=== PATIENT | male | born 1955 | race Caucasian/White ===

== ENCOUNTER → 2023-03-14 | Outpatient (CLI) | payer MEDICARE ==
[2023-03-14 09:41] LABS: African American GFR (CKD) >90 (>60 ml/min/1.73 sqM); Blood Urea Nitrogen 11 mg/dL (9-20); Non-African American GFR(CKD) >90 (>60 ml/min/1.73 sqM)
--- NOTE | 2023-03-14 10:27 | CT ---
EXAMINATION TYPE: CT soft tissue neck w con DATE OF EXAM: 03/14/2023 COMPARISON: None HISTORY: left side neck lump CT DLP: 850.1 mGycm CONTRAST: Patient injected with 100 mL of Isovue 300. TECHNIQUE: Axial images at 3 mm thick sections. Reconstructed images in the coronal plane and sagitt al plane are reviewed. FINDINGS: Limited CT sections are obtained the lung apices. The lung apices appear clear. CT neck: The torus tubarius and fossa of Rosenmuller are normal. Spout Tender spaces are normal. Para nasal sinuses and mastoid air cells are clear. Parotid glands appear normal and symmetrical. Submandibular glands, are normal. Parapharyngeal spac es are normal. There is a 1.1 cm lymph node adjacent to the descending thoracic aortic arch and the superior mediastinum. Some additional shotty lymphadenopathy in the aortopulmonic window. There is an enlarged node in the aortopulmonic window measuring 1.0 cm. There is a prominent posterior triangle lymph node measuring 1.1 cm. There is additional lymphadenopathy is on the left. A BB is on the level of the parotid gland which has very prominent confluent adenopathy deep to the musculature. This brittany sures up to 2.3 cm in size and is asymmetric with the contralateral side. There is a 1.4 cm lymph nod e in the left supraclavicular region. There is a three-vessel arch. The hypopharynx appears within normal limits. Vocal cord level appear symmetrical. Thyroid as visualized is normal. Osseous structures are normal. IMPRESSIONS: 1. Enlarged left side lymphadenopathy corresponds to the palpable region on the left. There are some enlarged supraclavicular adenopathy and enlarged mediastinal adenopathy. Additional workup for lympho ma or metastatic disease is recommended. A Yellow level critical message alert has been initiated for Chandana Strickland DO via the [employer] Critical Results System on 03/14/2023 10:24 AM. This message alert has been sent to Chandana Strickland DO vi a the preferences provided by the clinician for the receipt of Radiology Critical Findings. Message I D [id number].
== END | disposition home or self-care (01) ==
LOC: RADCTMAIN 08:55
PROVIDERS: ATTEND Family Medicine
DX: R22.1 Localized swelling, mass and lump, neck (principal)
CPT/HCPCS: 82565; 84520; 70491; 36415; Q9967

== ENCOUNTER 2023-04-08 13:01 | Day surgery (SDC) | payer MEDICARE ==
[2023-04-08 13:32] VITALS: RESP 16; TEMP 98.1
[2023-04-08 14:15] VITALS: BP 141/83; PULSE 88
--- NOTE | 2023-04-08 14:41 | US ---
ULTRASOUND GUIDED CORE BIOPSY LEFT NECK MASS: CLINICAL HISTORY: Left neck mass FINDINGS: The procedure was explained to the patient. The risks, complications, benefits and alternatives were discussed and any questions were answered. Informed consent was obtained. Patient was placed supin e on the ultrasound table and prepped and draped in the usual sterile fashion. Utilizing a 18 gauge needle, three passes were made into the neck mass. Patient was stable throughout the procedure. Pathology is pending. All elements of maximal barrier and sterile technique were utilized. IMPRESSION: 1. Successful ultrasound guided core biopsy left neck mass.
== END 2023-04-08 14:19 | disposition home or self-care (01) ==
LOC: RADPROMAIN 13:01
PROVIDERS: ATTEND Internal Medicine
DX: C85.11 Unspecified B-cell lymphoma, lymph nodes of head, face, and neck (principal)
CPT/HCPCS: 20206; 21550; 76942; 88305; 88341; 88342

== ENCOUNTER → 2024-05-07 | Outpatient (CLI) | payer MEDICARE ==
--- NOTE | 2024-05-16 15:13 | PE ---
EXAMINATION TYPE: PET CT fusion skull to thigh DATE OF EXAM: 05/07/2024 COMPARISON: 03/14/[address] Prior PET/CT: None at this location HISTORY: Lymphoma TECHNIQUE: Following the intravenous administration of 12.2 mCi of F-18 FDG, whole body images are p erformed from the skull base to the midthigh. Images are reviewed on the computer in the coronal, ax ial, and sagittal planes. Reconstructed rotating images are created on independent workstation and r eviewed on the computer. A localization and attenuation correction CT is performed in conjunction w ith the PET scan. DLP: 945.88 plus 519.54 mGycm SCAN: Subsequent Blood glucose: 114 mg/dL Average Mediastinum SUV: 2.7 Average Liver SUV: 3.32 FINDINGS: NECK: No abnormal uptake THORAX: No abnormal uptake ABDOMEN: No abnormal uptake PELVIS: No abnormal uptake OSSEOUS STRUCTURES: May be some inflammatory change at the left facet at C3-4 is mild increased radio tracer measuring SUV 4.[address]: No suspicious adenopathy identified. Coronary artery calcification is present. Some diverticulosis without acute diverticulitis is present. COMPARISON: Previous left neck adenopathy has resolved. IMPRESSION: 1. No suspicious uptake within lymphadenopathy to suggest recurrent or residual lymphoma. No metastat ic disease identified.
== END | disposition home or self-care (01) ==
LOC: RADPETMAIN 11:00
PROVIDERS: ATTEND Internal Medicine
DX: C82.98 Follicular lymphoma, unspecified, lymph nodes of multiple sites (principal)
CPT/HCPCS: 78815; A9552

== ENCOUNTER → 2025-03-11 | Outpatient (CLI) | payer MEDICARE ==
--- NOTE | 2025-03-11 13:27 | USB ---
Reason for Exam: Clinical finding. Technique: Method: Targeted. Findings: The upper outer quadrant of the right breast, the axilla of the right breast and the retroareolar of the right breast were scanned. A US of upper outer quadrant of the right breast and axilla, retro-areolar region were reviewed. No solid or cystic masses are identified.. There is some heterogeneous echogenicity of the right subcutaneous fat at the 10:00 position. This is of uncertain etiology correlate for inflammatory change. I consider follow-up CT scan. Overall Assessment: Probably benign, BI-RAD 3 Management: Diagnostic Breast Ultrasound of the right breast in 3 months. A clinical breast exam by your physician is recommended on an annual basis and results should be correlated with mammographic findings. This exam should not preclude additional follow-up of suspicious palpable abnormalities. Results were given to the patient verbally at the time of exam. [facility], , 03/11/2025 1:24 PM. Electronically signed and approved by: Gagandeep Dash M.D. Radiologis
== END | disposition home or self-care (01) ==
LOC: RADUSWWP 13:02
PROVIDERS: ATTEND Internal Medicine
DX: C82.98 Follicular lymphoma, unspecified, lymph nodes of multiple sites (principal); C00.4 Malignant neoplasm of lower lip, inner aspect; F32.5 Major depressive disorder, single episode, in full remission; Z71.3 Dietary counseling and surveillance

== ENCOUNTER → 2025-04-14 | Outpatient (CLI) | payer MEDICARE ==
[2025-04-14 15:40] VITALS: BP 148/84; PULSE 83; RESP 16; TEMP 97.9
--- NOTE | 2025-04-14 16:03 | P.SLEEP ---
History of Present Illness DATE: 04/14/2025 CONSULTATION/NEW PATIENT EVALUATION HISTORY OF PRESENT ILLNESS/SLEEP-WAKE EVALUATION: 69-year-old gentleman had b een evaluated in the sleep center for possible obstructive sleep apnea hypopnea syndrome. SLEEP SCHEDULE: Usually sleep schedule from 10 PM to 7 AM. FALLING ASLEEP: Sometimes patient has difficulties with falling asleep, has TV set in bedroom. DURING SLEEP: Patient sleeps in different position with snoring, grinding teeth, awakenings from sleep 4 times with nocturia. No history of hypnogogical hallucinations, sleep paralysis, or cataplexy. DURING THE DAY/WAKE STATE: During the day patient may feel occasional sleepiness. [place] sleepiness scale is 7. Sometimes patient take naps at 2 PM. PAST MEDICAL HISTORY: Atrial fibrillation, hypertension, hyperlipidemia, gout, diabetes mellitus. PAST SURGICAL HISTORY: Prostatectomy for cancer. MEDICATIONS: Please see below. SOCIAL HISTORY: Please see below. FAMILY HISTORY: Please see below. REVIEW OF SYSTEMS: Snoring, multiple awakenings from sleep. No fevers. No double vision. No recent chest pain. No shortness of breath. No abdominal pain. No bleeding episodes. No blood in urine. No seizure episodes. PHYSICAL EXAMINATION: GENERAL: A pleasant patient without any distress. VITAL SIGNS: Please see below, weight 279 pounds, BMI 35.8. HEENT: PERRLA, EOMI. Evaluation of oropharynx showed tongue protrudes midline, low position of soft palate Mallampati 23, short distance between soft palate and posterior pharyngeal wall. NECK: Supple. No JVD. Thyroid is not palpable. 19 inches in circumference. LUNGS: Clear to percussion and to auscultation. Good air exchange. No wheezing or rhonchi. HEART: S1, S2 regular. No murmurs, gallops or rubs. ABDOMEN: Soft and nontender. Bowel sounds are present. No organomegaly appreciated. EXTREMITIES: No clubbing or cyanosis. SURVEY PARTY CHIEF: Awake, alert, and oriented x3. Cranial nerves 2 to 7 intact. There is no fasciculation or atrophy noted. No focal deficits observed. ASSESSMENT: 1. Snoring, multiple awakenings from sleep, short distance between soft palate and posterior pharyngeal wall, wide neck 19 inches in circumference. Obstructive sleep apnea hypopnea syndrome. 2. History of atrial fibrillation. 3. Hypertension. 4. Hyperlipidemia. 5. Diabetes mellitus. 6 . Gout. 7. Status post prostatectomy for cancer. 8. Obesity, BMI 35.8. PLAN: 1. Polysomnography for evaluation of patient's breathing during sleep. 2. Following plan after reading sleep study. 3. Preferable position during sleep on the side. 4. No driving if patient feels any sleepiness. Patient is aware of civil and criminal liability for unsafe driving. 5. Sleep hygiene with regular sleep time for at least 7.5-8 hours. 6. Watching and losing weight. Thank you very much for referring this patient for consultation. Sincerely, Corey Melchor MD, PhD, FAASM. Diplomat of [employer], Sleep Medicine Board by [employer] [employer] [facility] [place] cc: Chandana Strickland DO, Skaf, Elias MD Past Medical History Past Medical History: Atrial Fibrillation, Cancer, Diabetes Mellitus, Hyperlipidemia, Hypertension, Prostate Disorder Additional Past Medical History / Comment(s): prostate cancer History of Any Multi-Drug Resistant Organisms: None Reported Additional Past Surgical History / Comment(s): prostate sugery for CA. Cyst removed left cheek. Past Anesthesia/Blood Transfusion Reactions: No Reported Reaction Past Psychological History: No Psychological Hx Reported Smoking Status: Former smoker Past Alcohol Use History: Daily Additional Past Alcohol Use History / Comment(s): 6 pack daily; quit a year ago Past Drug Use History: None Reported - Past Family History Father Family Medical History: No Reported History Medications and Allergies Home Medications Medication Instructions Recorded Confirmed Type Atorvastatin [Lipitor] 20 mg PO DAILY 04/04/23 04/14/25 History Metoprolol Tartrate [Lopressor] 50 mg PO BID 04/04/23 04/14/25 History Apixaban [Eliquis] 5 mg PO DAILY 04/14/25 04/14/25 History Furosemide [Lasix] 20 mg PO DAILY 04/14/25 04/14/25 History Indomethacin [Indocin ER] 75 mg PO 04/14/25 04/14/25 History Semaglutide [Ozempic] 1 mg SQ 04/14/25 History allopurinoL 100 mg PO DAILY 04/14/25 04/14/25 History metFORMIN HCL [Glucophage] 500 mg PO DAILY 04/14/25 04/14/25 History Allergies Allergy/AdvReac Type Severity Reaction Status Date / Time No Known Allergies Allergy Verified 04/08/23 13:23 Physical Exam Vitals: Vital Signs Temp Pulse Resp BP Pulse Ox 04/14/25 15:39 97.9 F 83 16 148/84 91 L Intake and Output 04/14/25 04/14/25 04/14/25 06:59 14:59 22:59 Other: Weight 126.552 kg Sleep Note - Sleep Data ESS Total: 7 - Sleep Note Sleep Note: Temperature: 97.9 F Pulse Rate: 83 Respiratory Rate: 16 Blood Pressure: 148/84 SpO2: 91 Height: 6 ft 2 in Weight: 126.552 kg BMI: Neck Circumference: 19
== END ==
LOC: 3 N SLEEP 15:13
PROVIDERS: ATTEND Internal Medicine
DX: G47.33 Obstructive sleep apnea (adult) (pediatric) (principal); I48.91 Unspecified atrial fibrillation; I10 Essential (primary) hypertension; E78.5 Hyperlipidemia, unspecified; E11.9 Type 2 diabetes mellitus without complications; M10.9 Gout, unspecified; E66.9 Obesity, unspecified; Z68.35 Body mass index [BMI] 35.0-35.9, adult; Z98.890 Other specified postprocedural states
CPT/HCPCS: 99211

== ENCOUNTER → 2025-06-13 | Outpatient (CLI) | payer MEDICARE ==
--- NOTE | 2025-06-14 08:20 | USB ---
Reason for Exam: Follow-up at short interval from prior study. Technique: Method: Targeted. Findings: The upper outer quadrant of the right breast, the axilla of the right breast and the retroareolar of the right breast were scanned. Technique utilized:US breast limited RT Image; Ultrasound imaging of: Area of concern, retroareolar region and axilla. No evidence for organizing fluid collection or mass. Overall Assessment: Negative, BI-RAD 1 Management: No follow up is required for this exam. A clinical breast exam by your physician is recommended on an annual basis and results should be correlated with mammographic findings. This exam should not preclude additional follow-up of suspicious palpable abnormalities. Results were given to the patient verbally at the time of exam. [facility], , 06/14/2025 8:17 AM. Electronically signed and approved by: Kodak Cartwright DO
== END | disposition home or self-care (01) ==
LOC: RADUSWWP 14:59
PROVIDERS: ATTEND Internal Medicine
DX: C82.98 Follicular lymphoma, unspecified, lymph nodes of multiple sites (principal); C00.4 Malignant neoplasm of lower lip, inner aspect; F32.5 Major depressive disorder, single episode, in full remission; Z71.3 Dietary counseling and surveillance

== ENCOUNTER 2025-06-14 19:38 | Outpatient (CLI) | payer MEDICARE ==
--- NOTE | 2025-06-16 16:05 | P.PCN ---
Description of Procedure: POLYSOMNOGRAPHY REPORT PROCEDURE(S)/DATE(S): Polysomnography 06/14/2025 CLINICAL: Patient has been seen in the sleep center for evaluation of obstructive sleep apnea-hypopnea syndrome. Please see my consultation. Sleep study has been done for evaluation of patient breathing during the sleep. PROCEDURE: The standard montage for clinical polysomnography included the electroencephalogram, the electrooculogram, the mentalis surface electromyography and Lead II cardiography. The respiratory battery consisted of measurements of nasal/buccal air flow, pressure transducer measurements from nose, thoracic and/or abdominal effort and intercostal surface electromyography. Video monitoring has been done to check for any parasomnia events. Nocturnal oxyhemoglobin saturations were obtained by finger oximetry. Step-cho titration with positive airway pressure was utilized to control the respiratory events, if necessary. RESULTS: During the diagnostic sleep study sleep efficiency was slightly decreased to 81.4%. Latency to sleep onset was in normal range 25.0 min. Sleep architecture showed stage NI was normal 8.7%, Delta sleep was absent 0%, REM sleep was slightly decreased to 18.9%. Respiratory channel showed 0 obstructive apneas, 0 mixed apneas, 0 central apneas, 18 hypopneas with lowest oxygen level 79%. Total apnea hypopnea index was 3.5. Oxygen level was below or equal 88% normal range for 12 minutes. Heart rate was in the range between 60 and 73, average 66. EMG showed 137.3 periodic limb movements per hour with 0.2 micro-arousals per hour. IMPRESSIONS: 1. No significant obstructive sleep apneas or hypopneas have been documented during the sleep study. 2. Significant oxygen desaturations have been documented. Oxygen level was below or equal 88% for 12 minutes. Former smoker. 3. Extremely severe periodic limb movements have been documented 137.3/h. Please see other impressions from consultation PLAN: 1. I will see patient for follow-up visit explained results of the test and recommendations. 2. Losing weight program. 3. Sleep hygiene with regular time in bed for at least 7-1/2 hours. 4. No driving if feeling sleepiness. 5. Please check iron profile including ferritin level. Low level of iron may increase the risk for periodic limb movements. Thank you very much for allowing me to participate in the management of your patient. Sincerely, Corey Melchor MD, PhD, FAASM. Diplomat of [place] [employer], Sleep Medicine Board by [employer] Funds Development Director of [facility] [place] cc: Chandana Strickland DO
== END 2025-06-15 05:40 | disposition home or self-care (01) ==
LOC: 3 N SLEEP 19:38
PROVIDERS: ATTEND Internal Medicine
DX: G47.33 Obstructive sleep apnea (adult) (pediatric) (principal); G47.61 Periodic limb movement disorder; Z87.891 Personal history of nicotine dependence
CPT/HCPCS: 95810